=== PATIENT | female | born 1975 | race Caucasian/White ===

== ENCOUNTER 2017-05-23 05:39 | Emergency (ER) | payer BC ==
[2017-05-23] MEDS ORDERED: Morphine 4 MG/ML VIAL ONE (06:52)
[2017-05-23] MEDS ORDERED: Lorazepam 2 MG/ML VIAL ONE (06:52)
[2017-05-23] MEDS ORDERED: Ondansetron HCl/PF 4 MG/2 ML Vial ONE (06:52)
[2017-05-23] MEDS ORDERED: Bacitracin Zinc 1 Packet ONE (08:29)
--- NOTE | 2017-05-23 08:39 | RAD ---
CERVICAL SPINE 1 VIEW: Date: 05/23/17 HISTORY: Spinal surgery. Neck pain. FINDINGS/IMPRESSION: Single frontal view shows anterior type fixation plate at the C5-6-7 levels. Dorsal column stimulator leads overlie the midline, ascending to the C4 level. Alignment is within normal limits on the front al view. POS: [facility]
--- NOTE | 2017-05-23 08:53 | RAD ---
CHEST 1 VIEW: Date: 05/23/17 HISTORY: Dyspnea. COMPARISON: 10/13/09. FINDINGS: Cardiac silhouette is magnified by projection. Pulmonary vasculature is unremarkable. Mediastinum is midline. There is no lobar consolidation or evidence of pneumothorax. Postoperative changes of the ce rvical spine and dorsal column stimulator leads are partially visualized. IMPRESSION: No active cardiopulmonary abnormalities are demonstrated. POS: [facility]
== END 2017-05-23 08:28 | disposition home or self-care (01) ==
LOC: ERS 05:39
DX: D51.0 Vitamin B12 deficiency anemia due to intrinsic factor deficiency; E03.9 Hypothyroidism, unspecified; Z79.899 Other long term (current) drug therapy; Z79.52 Long term (current) use of systemic steroids; M62.838 Other muscle spasm
CPT/HCPCS: 71045; 72020; 96374; 96375; J2060; J2270; J2405

== ENCOUNTER 2017-07-12 05:39 | Emergency (ER) | payer BC ==
[2017-07-12 07:06] LABS: #Eosinphils 0.5 thou/uL (0.0-0.7); #Lymphocytes 2.4 thou/uL (1.20-3.40); #Monocytes 0.8 thou/uL (0.11-0.59); #Neutrophils 7.9 thou/uL (1.40-6.50); %Basophils 0.4 % (0.0-1.0); %Eosinophils 3.9 % (0.0-10.0); %Lymphocytes 20.5 % (21.0-51.0); %Monocytes 6.6 % (0.0-10.0); %Neutrophils 68.6 % (42.0-75.0); Hemoglobin 15.8 g/dL (12.0-16.0); Mean Corpuscular HGB CONC 35.4 g/dL (32.0-36.0); Mean Corpuscular Hemoglobin 30.7 pg (27.0-31.0); Mean Corpuscular Volume 86.5 fl (81.0-99.0); Mean Platelet Volume 7.4 fL (7.4-10.4); Platelet Count 221 thou/uL (130-400); RBC Distribution Width 11.6 % (11.5-14.5); Red Blood Cell (RBC) Count 5.17 mill/uL (4.20-5.40); White Blood Cell (WBC) Count 11.5 thou/uL (4.8-10.8)
[2017-07-12 07:38] LABS: ALT (SGPT) 25 U/L (8-55); AST (SGOT) 30 U/L (5-34); Albumin 4.4 g/dL (3.5-5.0); Alkaline Phosphatase 64 U/L (40-150); Anion Gap 13 mmol/L (10-20); BUN (Urea Nitrogen) 9 mg/dL (7.0-18.7); Bilirubin, Total 0.7 mg/dL (0.2-1.2); Calc. Creatinine Clearance 0 mL/min (70-130); Calcium 9.2 mg/dL (7.8-10.44); Carbon Dioxide 22 mmol/L (22-29); Chloride 106 mmol/L (98-107); Estimated GFR-MDRD 79; Globulin 3.7 g/dL (2.4-3.5); Glucose 113 mg/dL (70-105); Potassium 3.9 mmol/L (3.5-5.1); Protein, Total 8.1 g/dL (6.0-8.3); Sodium 137 mmol/L (136-145)
== END 2017-07-12 09:55 | disposition home or self-care (01) ==
LOC: ERS 05:39
DX: A04.72 Enterocolitis due to Clostridium difficile, not specified as recurrent (principal); F41.9 Anxiety disorder, unspecified; Z79.899 Other long term (current) drug therapy
CPT/HCPCS: 80053; 82274; 83630; 85025; 87045; 87046; 87081; 87324; 87449; 87899; 96360; 96372

== ENCOUNTER 2017-12-04 09:09 | Outpatient (CLI) | payer BC ==
--- NOTE | 2017-12-04 10:21 | RAD ---
RIGHT SHOULDER THREE VIEWS: HISTORY: Pain. COMPARISON: None. FINDINGS: The glenohumeral joint space is preserved. No fracture or dislocation. There appears to be a stimul ator projecting over the lower cervical spine. IMPRESSION: Unremarkable three views right shoulder. POS: [facility]
--- NOTE | 2017-12-04 10:51 | RAD ---
CERVICAL SPINE RADIOGRAPH SERIES SEVEN VIEWS: INDICATIONS: Cervical radiculopathy. Neck pain. FINDINGS: The lateral masses of C1 and the dens are intact. The prevertebral soft tissues are normal in calibe r. Anterior metallic fusion spans C5 through C7 without acute hardware complication identified. The re is a partially imaged dorsal column stimulator. Evaluation of flexion and extension views reveals no significant malalignment or abnormal translational motion. There is evidence of osseous fusion of the C5-C6 segments. IMPRESSION: 1. Postoperative cervical spine. 2. There is no abnormal translational motion. POS: [facility]
== END 2017-12-04 09:10 | disposition home or self-care (01) ==
LOC: RAD 09:09
PROVIDERS: ATTEND Nurse Practitioner Family
DX: M54.12 Radiculopathy, cervical region (principal); M25.511 Pain in right shoulder; Z98.890 Other specified postprocedural states
CPT/HCPCS: 72052

== ENCOUNTER → 2018-01-21 | Day surgery (SDC) | payer BC ==
[~2018-01-21] MED LIST: Sodium Chloride 0.9% 10 ML ONE
[2018-01-21 08:18] VITALS: BMI 42.3
--- NOTE | 2018-01-21 10:19 | RAD ---
CERVICAL MYELOGRAM: History: Cervical radiculopathy. Exposure: 0.7 minutes, 170.3 mGy*cm^2. FINDINGS: Two views lumbar spine cdl driver radiograph demonstrates a right sided dorsal column stimulator. There ar e five lumbar type vertebral bodies. Vertebral body height is maintained. No fracture. No spondylolis thesis. Incidental intrauterine device is noted. Two views of the cervical spine demonstrate anterior fusion plate with transvertebral body screw at C 5, C6, and C7. No perihardware lucency. There is fusion of the C5-6 and C6-7 disc space. Dorsal column stimulator projects over the cervical spine from C3 through C7. Successful lumbar puncture for intrathecal contrast administration. A total of 9 cc of Isovue M 300 c ontrast was administered intrathecally. No immediate or post procedure complications. Technique: Consent was obtained to perform a lumbar puncture with fluoroscopic guidance for a cervical myelogram . Patient's back was evaluated. The L2-3 level was deemed appropriate. Skin was prepped and draped in sterile fashion. 1% Lidocaine, buffered with sodium bicarbonate was used for local anesthesia. Under fluoroscopic guidance, 22 gauge spinal needle was advanced to the CSF space. Inner stylet was remove d. Prompt flow of clear CSF. Via short tubing catheter, a total of 9 cc of Isovue M300 contrast was a dministered intrathecally. The patient tolerated the procedure well. No immediate or post procedure c omplications. IMPRESSION: Successful lumbar puncture for cervical myelogram. POS: [facility]
--- NOTE | 2018-01-21 11:12 | CT ---
POST MYELOGRAM CERVICAL SPINE CT: Date: 01/21/18 COMPARISON: 12/18/10. TECHNIQUE: Post myelogram cervical spine CT is performed in the axial plane. Reformatted images are submitted fo r interpretation. FINDINGS: There is an anterior fusion plate with a transvertebral screw at C5, C6, and C7. There is stable fusi on of the intervening disc space. There is no perihardware lucency. Interval placement of a dorsal co lumn stimulator entering the thecal sac at approximately the C6-C7 disc space level. The distal tip i s at the C3-C4 level. There is no craniocervical dissociation. Lateral masses of C1 and C2 articulate appropriately. Intact odontoid process. Stable calcification posterior to the odontoid process. Soft tissue neck structures are unremarkable. Upper mediastinum and lung apices are also unremarkable. C2-C3: No significant central canal stenosis. Neural foramina are patent. C3-C4: There is a central disc osteophyte complex that abuts the thecal sac. No significant central canal stenosis. Neural foramina are patent. C4-C5: There is a broad based disc osteophyte complex that abuts the thecal sac. Ventral CSF space i s still present. There is deformity of the ventral thecal sac and ventral cord. There is stable mild to moderate central canal stenosis. Neural foramina are patent. Mild left uncovertebral hypertrophy. C5-C6: There is a central osteophyte ridge that deforms the thecal sac and obliterates the midline C SF space. There is stable moderate central canal stenosis. Neural foramina are patent. C6-C7: There is a central/left paracentral osteophyte ridge. Subarachnoid space is effaced. There is mass effect upon the cervical cord. Moderate central canal stenosis. Right neural foramen is patent. Mild left foraminal narrowing due to left uncovertebral hypertrophy. C7-T1: No high grade central canal stenosis or high grade foraminal narrowing. IMPRESSION: 1. Cervical fusion changes as detailed above. 2. Dorsal column stimulator as above. 3. Degenerative changes of the cervical spine as above with central canal stenosis and foraminal noe rowing as described above. When compared to the prior exam, there is no significant change. POS: [facility]
== END ==
LOC: RAD 07:03
PROVIDERS: ATTEND Anesthesiology Pain Medicine
PROC: B01B1ZZ Fluoroscopy of Spinal Cord using Low Osmolar Contrast (ICD-10-PCS; principal; 2018-01-21)
DX: M50.10 Cervical disc disorder with radiculopathy, unspecified cervical region (principal); M48.02 Spinal stenosis, cervical region; Z79.899 Other long term (current) drug therapy; Z88.6 Allergy status to analgesic agent; Z88.8 Allergy status to other drugs, medicaments and biological substances; Z91.010 Allergy to peanuts; Z91.013 Allergy to seafood; Z91.040 Latex allergy status; Z96.89 Presence of other specified functional implants; Z98.1 Arthrodesis status
CPT/HCPCS: 62302; 72126

== ENCOUNTER → 2019-01-26 | Day surgery (SDC) | payer BC ==
[2019-01-25 08:33] VITALS: BMI 41.3
[~2019-01-26] MED LIST changes: +PROPOFOL 200 MG/20 ML VIAL ONE; -Sodium Chloride 0.9% 10 ML ONE
--- NOTE | 2019-01-26 11:30 | OP ---
DATE OF PROCEDURE: 01/26/2019 PROCEDURE PERFORMED: Colonoscopy with fecal microbiota transplantation. INDICATIONS FOR PROCEDURE: Recurrent Clostridium difficile colitis. DESCRIPTION OF PROCEDURE: After the risks and benefits of the procedure were explained to the patient including risks of bleeding, infection, perforation, reactions to anesthesia, aspiration, and/or pain, informed consent was obtained. The patient was then taken to the endoscopy suite and maneuvered into the left lateral decubitus position. Once in proper position, deep sedation was administered via propofol and anesthesia support. Once adequate sedation was achieved, a digital rectal examination was performed followed by advancing the standard colonoscope into the rectum and advanced to the cecum and terminal ileum. The quality of the prep was fair with a large amount of retained liquid stool, that was suctioned primarily on advancing into the cecum, but no suctioning was performed after the instillation of the donor stool. The patient tolerated the procedure well with no immediate perioperative complications. Upon conclusion of the procedure, all equipment was removed from the patient. She was transferred to Day Stay in satisfactory condition. FINDINGS: Digital rectal exam: Normal findings were seen on external examination. Colon findings: Limited views were obtained of the colon on initial advancement to the cecum with a large amount of retained liquid stool seen throughout the entire colon. This was suctioned somewhat as the colonoscope was being advanced. Now, the view was obtained. Normal-appearing mucosa was seen within the terminal ileum as well as at the ileocecal valve and appendiceal orifice. Normal-appearing mucosa was then seen in the cecum, ascending, transverse, descending, and sigmoid colon and including the rectum itself. Normal findings were seen on rectal retroflexion. Upon achieving intubation of the cecum and terminal ileum, the [employer] donor stool sample was attached to the irrigation port of the colonoscope. Using the irrigation port of the colonoscope, approximately 50 to 100 mL were instilled into the distal ileum. The remaining 150 to 200 mL were then instilled into the cecum. After instillation of the donor stool sample, the colonoscope was then withdrawn from the patient and the procedure concluded. IMPRESSION: 1. Normal-appearing mucosa seen within the terminal ileum and throughout the colon. 2. Successful instillation of 250 mL of [employer] donor stool sample within the terminal ileum and the cecum itself. RECOMMENDATIONS: 1. We would hold any antibiotics unless truly necessary in the postprocedure period including within the next 1-2 weeks. 2. We would recommend a higher fiber diet in light of recent Clostridium difficile infection and as part of a stool bulking technique. 3. We would have the patient follow up in the GI clinic in 3 to 4 weeks for further evaluation. Job ID: [id number]
== END ==
LOC: SDC 08:19
PROVIDERS: ATTEND Internal Medicine
PROC: 3E0H8GC Introduction of Other Therapeutic Substance into Lower GI, Via Natural or Artificial Opening Endoscopic (ICD-10-PCS; principal; 2019-01-26)
DX: A04.71 Enterocolitis due to Clostridium difficile, recurrent (principal); K92.1 Melena; Z87.891 Personal history of nicotine dependence; Z79.899 Other long term (current) drug therapy; Z88.1 Allergy status to other antibiotic agents; Z88.6 Allergy status to analgesic agent; Z91.010 Allergy to peanuts; Z91.011 Allergy to milk products; Z91.013 Allergy to seafood; Z91.018 Allergy to other foods
CPT/HCPCS: J2704